=== PATIENT | female | born 1950 | race Asian ===

== ENCOUNTER → 2016-12-15 | Outpatient (CLI) | payer MEDICARE, OTHER ==
[~2016-12-15] MED LIST: ASPIRIN 81M81 MG/TA2 PO; MELATONIN1 MG PO; NEXIUM 40MG40 MG PO; TOPROL XL 25MG25 MG PO; VITAMIND3 5000 PO; ZOLOFT 25MG25 MG PO
== END ==
LOC: COL.RAD 11:01
DX: I47.2 Ventricular tachycardia (principal)

== ENCOUNTER 2017-01-20 06:39 | Day surgery (SDC) | payer MEDICARE, OTHER ==
[2017-01-20] VITALS (10 sets, daily range): BP systolic 106–139; BP diastolic 68–84; PULSE 80–97; TEMP 98.6
[~2017-01-20] VITALS: Ht 152.4 cm; Wt 55.0 kg
[2017-01-20 07:44] LABS: MEAN CELL VOLUME 79 fl (80.0-100.0); MEAN CORPUSCULAR HGB CONC 32 g/dl (33.0-37.0); MEAN PLATELET VOLUME 8.3 fl (7.4-10.4); PLATELET COUNT 471 K/mm3 (130-400); RED BLOOD COUNT 3.62 M/mm3 (4.10-5.30); REDCELL DISTRIBUTION WIDTH-CV 14.3 % (11.5-14.5); WHITE BLOOD COUNT 10.7 K/mm3 (4.8-10.8)
[2017-01-20 07:46] LABS: INR 1.4 (0.8-3.0); PROTHROMBIN TIME 15.8 SECONDS (9.7-12.8)
[2017-01-20 07:49] LABS: HEMATOCRIT 28.7 % (37.0-47.0); HEMOGLOBIN 9.3 g/dl (12.5-16.0); MEAN CORPUSCULAR HEMOGLOBIN 26 pg (27.0-31.0)
[2017-01-20 07:53] LABS: CALCIUM 8.6 mg/dL (8.4-10.2); CREATININE, serum 0.66 mg/dL (0.52-1.25)
[2017-01-20] MEDS ORDERED: MELATONIN1 MG PO (07:59)
[2017-01-20] MEDS ORDERED: ZOLOFT 25MG25 MG PO (07:59)
[2017-01-20] MEDS ORDERED: VITAMIND3 5000 PO (08:00)
[2017-01-20] MEDS ORDERED: ASPIRIN 81M81 MG/TA2 PO (08:26)
[2017-01-20] MEDS ORDERED: TOPROL XL 25MG25 MG PO (12:14)
[2017-01-20] MEDS ORDERED: NEXIUM 40MG40 MG PO ×2 (12:15)
== END 2017-01-20 13:15 | disposition home or self-care (01) ==
LOC: COL.CAR 06:39
PROVIDERS: Internal Medicine Cardiovascular Disease
DX: I47.2 Ventricular tachycardia (principal); I10 Essential (primary) hypertension; I49.9 Cardiac arrhythmia, unspecified; E78.2 Mixed hyperlipidemia; M19.90 Unspecified osteoarthritis, unspecified site
CPT/HCPCS: C1725; C1769; C1887; J1644; J2250; J3010; Q9967

== ENCOUNTER → 2020-12-20 | Outpatient (CLI) | payer MEDICARE, OTHER | LOC: COL.RAD 07:20 | DX: M50.30 Other cervical disc degeneration, unspecified cervical region (principal); M48.02 Spinal stenosis, cervical region; M89.9 Disorder of bone, unspecified ==

== ENCOUNTER → 2022-04-15 | Outpatient (CLI) | payer MEDICARE, OTHER ==
--- NOTE | 2022-04-14 09:40 | NUR ---
called and vooice mail box is full
--- NOTE | 2022-04-15 07:56 | NUR ---
DR ACOSTA CANCELLED PROCEDURE
== END ==
LOC: COL.RAD 06:11
DX: E04.2 Nontoxic multinodular goiter (principal)